=== PATIENT | male | born 1935 | race African-American/Black ===

== ENCOUNTER 2017-08-14 13:38 | Outpatient (CLI) | payer MEDICARE, MEDICAID ==
--- NOTE | 2017-08-14 15:46 | Diagnostic Imaging Report ---
Clinical Indication: Cough, chest pain Technique: Spiral acquisitions obtained through the chest. No IV contrast utilized, . Multiplanar reconstructions generated. Total dose length product 521.8 mGycm. CTDIvol(s) 15.42 mGy. Dose reduction achieved using automated exposure control Comparison: none Findings: Focal areas of fibrosis are seen at the bilateral lung apices. Respiratory or cardiac motion artifact limits visualization of the left lower lobe. No definite infiltrates, effusions, or congestion. Multiple (2) non-calcified nodules in the right lower lobe. The largest one is ground glass, measuring 4 mm (series 5, image 40), and is indeterminate. The heart is enlarged. No pericardial effusion. No mediastinal or hilar mass or adenopathy. Included thyroid is unremarkable. No axillary or chest wall mass or adenopathy. There is a large hiatal hernia The bones demonstrate an old healed bilateral sixth rib fracture deformities and healed fracture deformity of the anterolateral left fourth rib. There are degenerative changes of the sternomanubrial junction. The included upper abdominal anatomy is remarkable for the presence of left renal cysts. There is questionably a 9 mm nodule of the right adrenal which is low in attenuation consistent with a benign adenoma. Impression: No acute process Bilateral apical chronic fibrotic changes A stable 9 mm right adrenal adenoma Incidental findings of bilateral healed rib fracture deformities, bilateral renal cysts, and large hiatal hernia Multiple (2) right lower lobe indeterminate pulmonary nodules. The largest one is subsolid and measures 4 mm. For multiple nodules <6 mm, with the largest one being subsolid, recommend CT at 3-6 months. Multiple pure ground-glass nodules are usually benign, but, if stable, and the patient is at high risk, consider follow-up at 2 and 4 years. Shravan H, et al. Guidelines for Management of Incidental Pulmonary Nodules Detected on CT Images: From the Fleischner Society 2017. Radiology. 2017 Man;284(1):228-243. The CT scanner at [facility] is accredited by the [employer] and the scans are performed using protocols designed to limit radiation exposure to as low as reasonably achievable to attain images of sufficient resolution adequate for diagnostic evaluation
== END 2017-08-14 15:38 | disposition home or self-care (01) ==
LOC: CAT 13:38
DX: R05 Cough (principal); R07.9 Chest pain, unspecified; D35.01 Benign neoplasm of right adrenal gland; N28.1 Cyst of kidney, acquired; K44.9 Diaphragmatic hernia without obstruction or gangrene; R91.1 Solitary pulmonary nodule
CPT/HCPCS: 71250

== ENCOUNTER → 2017-11-24 | Outpatient (CLI) | payer MEDICARE, MEDICAID ==
--- NOTE | 2017-11-24 11:44 | Diagnostic Imaging Report ---
Indication: Cough Technique: Continuous helical transaxial imaging of the chest was obtained from the thoracic inlet to the upper abdomen. No intravenous contrast was administered. Coronal 2-D reformats were also obtained. Total Dose length Product (DLP): 676.[address] Dose Index Volume (CTDIvol): 17.67 mGy Comparison: 08/14/2017 Findings: Ill-defined densities noted at the apices of both lung bases probably chronic in nature. These are seen previously also. Findings likely represent scarring. There is no consolidation or abnormal fluid collections in the chest. There is a moderate size hiatal hernia present. Visualized upper abdomen notable for calcifications involving the area of the pancreatic head and uncinate process. This may be sequela of previous pancreatitis. Suggestion of bilateral renal cysts which may be further evaluated with ultrasound. Gallbladder is grossly unremarkable. Extensive diverticula noted within the visualized colon. There is a left adrenal mass incidentally noted measuring 1.6 x 1.0 cm. There is suggestion of a 1.3 cm right adrenal mass. Evaluation with MRI would be appropriate. The adrenal mass does not appear changed from the prior examination. Aorta is mildly calcified. IMPRESSION: Moderate size hiatal hernia. Scarring at the apices of both lungs Atherosclerotic disease Partially imaged bilateral renal cysts which may require further evaluation with ultrasound. Diverticulosis of the colon. Calcifications in the head of the pancreas probably on the basis of previous pancreatitis. Atherosclerotic disease Bilateral adrenal masses. Suggest MRI. No significant change from the previous study The CT scanner at [facility] is accredited by the [employer] and the scans are performed using dose optimization techniques as appropriate to a performed exam including Automatic Exposure control.
== END | disposition home or self-care (01) ==
LOC: CAT 08:50
DX: R05 Cough (principal); K44.9 Diaphragmatic hernia without obstruction or gangrene; I70.90 Unspecified atherosclerosis; N20.0 Calculus of kidney; K57.30 Diverticulosis of large intestine without perforation or abscess without bleeding
CPT/HCPCS: 71250